=== PATIENT | female | born 1980 | race Caucasian/White ===

== ENCOUNTER → 2018-06-04 | Outpatient (CLI) | payer OTHER ==
[2018-06-04 13:56] VITALS: BP 138/98; PULSE 76; BMI 28.2
--- NOTE | 2018-06-04 14:35 | P.GSHP ---
History of Present Illness H&P Date: 06/04/18 The patient is a 38-year-old female who presents for breast examination. She has a family history of maternal aunt having developed breast cancer in her 40s and the patient had a baseline mammogram herself at 35. At that time everything was felt to be within normal limits and she recently at age of 38 decided to have a repeat mammogram performed. The patient had not felt any masses in her breast of concern. She does not describe any trauma to the breast. She has no complaints of pain in the breasts. No nipple discharge or skin changes for which she is concerned. On the radiographic studies after the mammogram bilateral ultrasound were recommended. On the ultrasound the lesion at 9:00 was noted. This is 0.8 cm and biopsy was recommended of this area. At 12:00 in the left breast is a circumscribed oval oval mass this is 0.9 cm an attempted aspiration with biopsy if in able to completely aspirate the area is recommended additionally a final area at 1 o'clock position in the right breast is identified this measures 0.9 cm and is felt to most likely represent a complex cyst but again cyst aspiration is recommended with biopsy if insufficient fluid is withdrawn. Patient drinks about 2-3 Dr[address] Peppers per day. Patient smokes 1/2-1 PPD. Her also smokes. Her breast are more sore just before her periods. family history: 1. maternal aunt: breast cancer in her 40's, she had a bilateral mastectomy Hormonal history: Menarche: 14 Pregnancies: 3, 3 live births first at 24 patient did not breast-feed Menstrual periods are regular but has had some prolonged bleeding recently and is going for a transvaginal ultrasound in the near future control pills: 8 years Hormones: None Past surgical History: 1. 2 C-sections Past Medical History: none Social History: smoke: 22 years alcohol: social, weekly drugs: none - Constitutional Constitutional: Denies chills, Denies fever - EENT Eyes: denies blurred vision, denies pain Ears: right: tinnitus, deny: decreased hearing Ears, nose, mouth and throat: Denies headache, Denies sore throat - Breasts Breasts: bilateral: as per HPI - Cardiovascular Cardiovascular: Denies chest pain, Denies shortness of breath - Respiratory Comment: smoker Respiratory: Denies cough, Denies 7 - Gastrointestinal Gastrointestinal: Denies abdominal pain, Denies diarrhea, Denies nausea, Denies vomiting - Genitourinary (Female) Genitourinary: Denies dysuria, Denies hematuria - Menstruation Menstruation: Reports as per HPI - Musculoskeletal Musculoskeletal: Denies myalgias - Integumentary Integumentary: Denies pruritus, Denies rash - Neurological Neurological: Denies numbness, Denies weakness - Psychiatric Psychiatric: Reports depression - Endocrine Endocrine: Reports fatigue - Hematologic/Lymphatic Comment: none - Allergic/Immunologic Allergic/Immunologic: Reports seasonal allergies Past Medical History Past Medical History: No Reported History History of Any Multi-Drug Resistant Organisms: None Reported Past Surgical History: Section Additional Past Surgical History / Comment(s): c/s x2 Past Anesthesia/Blood Transfusion Reactions: Postoperative Nausea & Vomiting ( PONV) Smoking Status: Current every day smoker - Past Family History Mother Family Medical History: Asthma, Hypertension Father Family Medical History: Diabetes Mellitus, Hyperlipidemia, Hypertension Additional Family Medical History / Comment(s): HEP C Medications and Allergies Home Medications Medication Instructions Recorded Confirmed Type Escitalopram [Lexapro] 10 tab PO DAILY 06/04/18 06/04/18 History Surgical - Exam Vital Signs Pulse BP Pulse Ox 76 138/98 98 06/04/18 13:52 06/04/18 13:52 06/04/18 13:52 - General well developed, well nourished, no distress - Eyes normal ocular movement, no icteric - ENT no hearing loss, no congestion - Neck no masses, trachea midline - Respiratory normal respiratory effort, clear to auscultation - Cardiovascular Rhythm: regular Heart Sounds: normal: S1, S2 - Abdomen Abdomen: soft, non tender, no guarding, no rigid, no rebound - Neurologic no disoriented, no combative - Musculoskeletal normal gait, normal posture - Psychiatric oriented to time, oriented to person, oriented to place, speech is normal, memory intact breast exam: right breast: Multi-positional exam of the right breast no dominant masses or nodules of concern Right axilla: No adenopathy of concern Left breast: Multiple positional exam no dominant masses or nodules of concern Left axilla: No adenopathy of concern Results Patient's mammogram and ultrasound of results reviewed Assessment and Plan Assessment: Impression/plan: 1. Radiographic changes of concern right and left breast 2. Nicotine dependence Plan: 1. Patient undergo ultrasound-guided biopsy/aspiration of areas of concern in both right and left breast 2. Follow-up 1 week following ultrasound guided aspiration/biopsy of breast lesions CC: Dr. Alfaro
== END | disposition home or self-care (01) ==
LOC: WWCWWP 13:46
PROVIDERS: ATTEND Surgery
DX: Z53.9 Procedure and treatment not carried out, unspecified reason (principal)

== ENCOUNTER → 2018-06-14 | Day surgery (SDC) | payer OTHER ==
[2018-06-14 11:44] VITALS: RESP 16; BMI 28.2
[2018-06-14 13:52] VITALS: BP 124/81; PULSE 69; TEMP 98.2
--- NOTE | 2018-06-14 14:11 | USB ---
EXAMINATION TYPE: US breast aspiration single RT, MG diagnostic mammo RT wo CAD DATE OF EXAM: 06/14/2018 COMPARISON: Outside imaging dated 05/26/2018 and outside ultrasound report. CLINICAL HISTORY: R92.8 ABN MAMMO. FINDINGS: Preprocedural scanning demonstrates a cluster of cysts with increased through transmission also evalu ated on real-time imaging that is avascular measuring 1.0 x 0.7 x 0.9 cm at the 1:00 position within the right breast at zone A. Six-month follow-up is recommended for this probably benign cystic cluste r. This was discussed with the patient. At the 9:00 position on the right a more irregular 0.4 x 0.4 x 0.9 cm mass was seen that did appear t o have a well defined posterior wall, however and slightly irregular margins on a single image and th erefore decision was made to attempt aspiration and compared to biopsy if necessary. At the 12:00 position on the left in zone BC there is an additional 0.7 x 0.3 x 0.6 cm mass that is a nechoic with increased through transmission also avascular. This appears to elongate along the tissue planes on image 16 with adjacent prominent ducts. This is favored to represent an elongated duct and will also be followed at 6 months. This was discussed with the patient. PROCEDURE: The procedure of ultrasound guided aspiration with possible conversion to core biopsy was explained t o the patient. Benefits, alternatives, and risks were discussed. An informed consent was then obtai janet. Preprocedural timeout was performed. The patient was placed in supine positioning for imaging and for the procedure. The overlying skin wa s prepped and draped in usual sterile fashion. 10 cc of lidocaine buffered with bicarbonate was used as anesthetic into the skin and subcutaneous tissue up to the 0.4 x 0.4 x 0.9 cm mass at the 9:00 pos ition within the right breast. Under ultrasound guidance, an 18-gauge spinal needle was used to aspir ate approximately 1 cc of thin, serous fluid with near complete collapse of the cystic lesion. Follow ing this, a biopsy clip was left in directly adjacent to the postbiopsy site as depicted on image 25 (1 mm away). Postprocedural mammogram demonstrates appropriate clip placement. The patient tolerated the procedure well without any immediate complication. The patient was kept in the radiology department for short stay after the procedure and then discharged home in stable condi tion. IMPRESSION: Successful, uncomplicated ultrasound guided aspiration of the 0.4 x 0.4 x 0.9 cm cystic mass at the 9:00 position within the right breast, full pathology results to follow. Six-month follow -up ultrasound is recommended for the probably benign findings of a right posterior cyst at the 1:00 position and prominent duct at the 12:00 position in the left breast.
== END ==
LOC: RADUSWWP 11:12
PROVIDERS: ATTEND Surgery
DX: N60.01 Solitary cyst of right breast (principal); N63.20 Unspecified lump in the left breast, unspecified quadrant
CPT/HCPCS: 88108; 77065; 76942; 19000; A4648; J2001